=== PATIENT | female | born 1960 | race Caucasian/White ===

== ENCOUNTER 2017-10-23 18:57 | Inpatient (IN) | payer OTHER ==
[~2017-10-23] VITALS: Ht 167.6 cm; Wt 90.9 kg
[~2017-10-23 18:57] MED LIST: AMIT25TA20 PO; CELE40TA PO; CLON.5 PO; CLON1 PO; CYCL-36 PO; DICY10 PO; ESTR0.5T9 PO; FIORTAB4 PO; LYRI50CA2 PO; OXYB5TAB33 PO; PROT40TA PO; ZANA4CAP PO
[2017-10-23 19:05] VITALS: BP 157/69; PULSE 106; RESP 18; TEMP 99.9; O2SAT 96
[2017-10-23] MEDS ORDERED: PANT40TA3 PO (19:35)
[2017-10-23] MEDS ORDERED: LEVO137T2 PO (19:35)
[2017-10-23 19:48] VITALS: BP 143/68; PULSE 97; RESP 18; TEMP 99.9; O2SAT 99
[2017-10-23] MEDS ORDERED: METF1000 PO (19:48)
[2017-10-23] MEDS ORDERED: MORPHINE SULFATE 4 MG/ML INJ IV PUSH ONE (20:00)
[2017-10-23] MEDS ORDERED: ONDANSETRON HCL 4 MG/2 ML VIAL IV ONE (20:00)
[2017-10-23] MEDS ORDERED: SODIUM CHLOR 0.9% 1000 ML INJ 1,000 ML IV ONE (20:00)
--- NOTE | 2017-10-23 20:13 | PD ---
HPI Chief Complaint: Abdominal Pain Time Seen by Provider: 19:37 Travel History International Travel<30 days: No Contact w/Intl Traveler<30days: No Traveled to known affect area: No History of Present Illness HPI The patient is a 57 year old female who presents to the [facility] emergency department with a history of abdominal pain that has been present over the last few weeks. The patient reports that she was seen at the [place] imaging facility and had a CT scan of the abdomen and pelvis done on October 08 that revealed diverticulitis. She reports that this was ordered by her primary care physician, Sydney Wray that works at Dr. Lai's office. The patient reports that she has had diverticulitis in the past and been admitted to the hospital previously for this. She reports that her last colonoscopy was in February 2017. Her GI doctor is Dr. Quintanilla. The patient reports that she completed a course of ciprofloxacin and Flagyl. She has been on a clear liquid diet and advance the diet, however the pain recurred. She reports that the pain is severe and in the left lower quadrant of the abdomen. She reports that is worsened with eating anything. She reports that she has had low-grade fevers with a T-max of 99.9. She reports having nausea without vomiting. She reports having constipation. She reports that her last bowel movement was yesterday evening. She denies having any blood in her stool or black or tarry stools. On review of systems otherwise, the patient denies having any recent cough or congestion, neck pain, urinary symptoms, or neurologic symptoms. The patient reports that she does have a history of intermittent chest pain and shortness of breath. She reports that she was admitted to [facility] for evaluation of this between 3 and 4 weeks ago. He underwent a stress test that was reportedly negative at that time. She was told that she needed a follow-up for endoscopy as they thought it may be related to acid reflux, however when she called her GI doctor regarding that she was told it was too soon to have endoscopy done again. [facility] Past Medical History Narrative Medical The patient's past medical history is significant for hypertension, anxiety disorder, acid reflux, diabetes mellitus, hyperlipidemia, diverticulitis, hyperthyroid Asthma: Yes (GESTATIONAL ASTHMA, PT CAN CLARIFY IF NEEDED) Anxiety: Yes Cancer: Yes (THYROID) Cardiovascular Problems: Yes (MURMUR) Chemotherapy: Yes (I-131) Chest Pain: No COPD: No Diabetes: No Diminished Hearing: No Diverticulitis: Yes (DIVERTICULOSIS) Gastrointestinal Disorders: Yes GERD: Yes Genitourinary: Yes (STRESS INCONTINENCE, PROLAPSE BLADDER) Headaches: Yes Hepatitis: No Hiatal Hernia: Yes (GERD) Hypertension: Yes (DRUG RELATED ) Inguinal Hernia: Yes (X3) Kidney Stones: Yes Medical other: Yes (FIBROMYALGIA) Musculoskeletal: Yes Neurologic: Yes Reproductive: Yes (HYSTERECTOMY, OVARIES STILL IN PLACE) Respiratory: No Migraines: Yes Pneumonia: Yes Renal Failure: No Sleep Apnea: No Thyroid Disease: Yes Ulcer: No Tetanus Vaccination: Unknown Past Surgical History Narrative Surgical The patient's past surgical history is significant for thyroid irradiation, history of cholecystectomy, hysterectomy, umbilical hernia repair 3, tonsil and adenoidectomy. Abdominal Surgery: Yes (3 ABDOMINAL HERINIA REPAIR) Appendectomy: Yes Section: Yes (X3) Cholecystectomy: Yes Endocrine Surgery: Yes (THYROIDECTOMY ) Genitourinary Surgery: Yes (ADHESION REMOVAL ) Gynecologic Surgery: Yes (BLADDER TUCK ) Hysterectomy: Yes Oral Surgery: Yes (T & A) Other Surgery: Yes (HEMMORID) Family History Family Hypercholesterolemia: Yes (GRANDFATHER) Social History Alcohol Use: No Tobacco Use: No (QUIT 1999) Substance Use: No Allergies-Medications (Allergen,Severity, Reaction): Coded Allergies: Influenza Virus Vaccines (Unverified Allergy, Severe, VOMITING, 10/23/17) codeine (Unverified Allergy, Severe, ITCHING, RASH, NAUSEA, 10/23/17) hydrocodone (Unverified Allergy, Severe, ITCHING, NAUSEA, 10/23/17) Reported Meds & Prescriptions Reported Meds & Active Scripts Active Reported Metformin (Metformin HCl) 1,000 Mg Tab 1,000 Mg PO BIDPC Pantoprazole (Pantoprazole Sodium) 40 Mg Tab 40 Mg PO BID Levothyroxine (Levothyroxine Sodium) 137 Mcg Tab 137 Mcg PO DAILY Esgic Tab (Acetaminophen/Butalbital/Caffeine) 1 Tab Tab 2 Tab PO Q6HPRN FOR PAIN Celexa (Citalopram Hydrobromide) 40 Mg Tab 40 Mg PO DAILY Klonopin (Clonazepam) 1 Mg Tab 1 Mg PO HS Zanaflex 4 mg capsule (Tizanidine HCl) 4 Mg Cap 4 Mg PO HS Review of Systems Except as stated in HPI: all other systems reviewed are Neg General / Constitutional: Positive: Fever, Chills Eyes: No: Visual changes HENT: No: Headaches Cardiovascular: Positive: Chest Pain or Discomfort, Dyspnea on exertion Respiratory: Positive: Shortness of Breath, No: Cough Gastrointestinal: Positive: Nausea, Abdominal Pain, Constipation, Changes in Bowel Habits, Loss of Appetite, No: Vomiting, Diarrhea, Hematochezia, Indigestion Genitourinary: No: Dysuria Musculoskeletal: No: Pain Skin: No Rash Neurologic: No: Weakness, Focal Abnormalities, Change in Mentation, Slurred Speech, Sensory Disturbance Psychiatric: No: Depression Endocrine: No: Polydipsia Hematologic/Lymphatic: No: Easy Bruising Physical Exam Narrative General: The patient is a well-developed well-nourished female in no acute distress. Head and Neck exam: Head is normocephalic atraumatic. Eyes: EOMI, pupils are equal round and reactive to light. Nose: Midline septum with pink mucous membranes Mouth: Dentition unremarkable. Moist mucus membranes. Posterior oropharynx is not erythematous. No tonsillar hypertrophy. Uvula midline. Airway patent. Neck: No palpable lymphadenopathy. No nuchal rigidity. No thyromegaly. Cardiovascular: Regular rate and rhythm without murmurs, gallops, or rubs. No pulse deficit to the extremities on simultaneous auscultation and palpation of her radial artery. Lungs: Clear to auscultation bilaterally. No wheezes, rhonchi, or rales. Abdomen: Soft, with tenderness on palpation of the left upper and lower quadrant of the abdomen worse in the left lower quadrant, no other tenderness on palpation of the other quadrants of the abdomen. No rebound, or rigidity. Normal bowel sounds are audible. No tenderness on palpation of McBurney's point. Extremities: No clubbing, cyanosis, or edema. 2+ pulses in all 4 extremities. Back: No spinous process tenderness to palpation. No costovertebral angle tenderness to palpation. Neurologic Exam: Grossly nonfocal. Skin Exam: No rash noted. Intact skin that is warm and dry. Data Data Last Documented VS Vital Signs Date Time Temp Pulse Resp B/P (MAP) Pulse Ox O2 Delivery O2 Flow Rate FiO2 10/23/17 20:20 96 10/23/17 19:48 99.9 97 18 Room Air Orders Orders Electrocardiogram (10/23/17 19:47) Complete Blood Count With Diff (10/23/17:47) Comprehensive Metabolic Panel (10/23/17:47) Creatine Kinase (Cpk) (10/23/17:47) Ckmb (Isoenzyme) Profile (10/23/17:47) Troponin I (10/23/17:47) B-Type Natriuretic Peptide (10/23/17:47) Prothrombin Time / Inr (Pt) (10/23/17:47) Act Partial Throm Time (Ptt) (10/23/17:47) Blood Culture (10/23/17:47) C-Reactive Protein (Crp) (10/23/17:47) Lipase (10/23/17:47) Urinalysis - C+S If Indicated (10/23/17:47) Magnesium (Mg) (10/23/17:47) Chest, Single Ap (10/23/17:47) Ct Abd/Pel W Iv Contrast(Rout) (10/23/17:47) Iv Access Insert/Monitor (10/23/17:47) Ecg Monitoring (10/23/17:47) Oximetry (10/23/17:47) Lactic Acid Sepsis Protocol (10/23/17:47) Sodium Chlor 0.9% 1000 Ml Inj (Ns 1000 M (10/23/17 20:00) Ondansetron Inj (Zofran Inj) (10/23/17 20:00) Morphine Inj (Morphine Inj) (10/23/17 20:00) Piperacil-Tazo 3.375 Gm Premix (Zosyn 3. (10/23/17 21:15) Sodium Chlorid 0.9% 500 Ml Inj (Ns 500 M (10/23/17 21:15) CKMB (10/23/17 20:20) CKMB% (10/23/17 20:20) Iohexol 350 Inj (Omnipaque 350 Inj) (10/23/17 22:04) Labs Laboratory Tests Test 10/23/17 20:20 10/23/17 20:40 White Blood Count 9.8 TH/MM3 Red Blood Count 4.15 MIL/MM3 Hemoglobin 12.2 GM/DL Hematocrit 36.0 % Mean Corpuscular Volume 86.7 FL Mean Corpuscular Hemoglobin 29.4 PG Mean Corpuscular Hemoglobin Concent 33.9 % Red Cell Distribution Width 13.8 % Platelet Count 301 TH/MM3 Mean Platelet Volume 8.9 FL Neutrophils (%) (Auto) 70.5 % Lymphocytes (%) (Auto) 18.4 % Monocytes (%) (Auto) 9.7 % Eosinophils (%) (Auto) 1.0 % Basophils (%) (Auto) 0.4 % Neutrophils # (Auto) 6.9 TH/MM3 Lymphocytes # (Auto) 1.8 TH/MM3 Monocytes # (Auto) 1.0 TH/MM3 Eosinophils # (Auto) 0.1 TH/MM3 Basophils # (Auto) 0.0 TH/MM3 CBC Comment DIFF FINAL Differential Comment Prothrombin Time 10.0 SEC Prothromb Time International Ratio 1.0 RATIO Activated Partial Thromboplast Time 27.0 SEC Blood Urea Nitrogen 13 MG/DL Creatinine 0.76 MG/DL Random Glucose 95 MG/DL Total Protein 7.2 GM/DL Albumin 3.4 GM/DL Calcium Level 8.9 MG/DL Magnesium Level 1.9 MG/DL Alkaline Phosphatase 71 U/L Aspartate Amino Transf (AST/SGOT) 27 U/L Alanine Aminotransferase (ALT/SGPT) 24 U/L Total Bilirubin 0.6 MG/DL Sodium Level 140 MEQ/L Potassium Level 4.4 MEQ/L Chloride Level 105 MEQ/L Carbon Dioxide Level 27.9 MEQ/L Anion Gap 7 MEQ/L Estimat Glomerular Filtration Rate 78 ML/MIN Lactic Acid Level 0.9 mmol/L Total Creatine Kinase 159 U/L Creatine Kinase MB LESS THAN 0.5 NG/ML Troponin I LESS THAN 0.02 NG/ML C-Reactive Protein 2.90 MG/DL B-Type Natriuretic Peptide 22 PG/ML Lipase 125 U/L Urine Color YELLOW Urine Turbidity CLEAR Urine pH 7.5 Urine Specific [place] 1.019 Urine Protein NEG mg/dL Urine Glucose (UA) NEG mg/dL Urine Ketones NEG mg/dL Urine Occult Blood NEG Urine Nitrite NEG Urine Bilirubin NEG Urine Urobilinogen LESS THAN 2.0 MG/DL Urine Leukocyte Esterase NEG Urine WBC 1 /hpf Urine Squamous Epithelial Cells 1 /hpf Microscopic Urinalysis Comment CULT NOT INDICATED MDM Medical Decision Making Medical Screen Exam Complete: Yes Emergency Medical Condition: Yes Medical Record Reviewed: Yes Differential Diagnosis Diverticular abscess, versus failed treatment of diverticulitis as an outpatient , versus bowel perforation, versus constipation Narrative Course During the course of the patient's emergency department visit, the patient's history, examination, and differential diagnosis were reviewed with the patient. The patient was placed on a satellite project site monitor with oximetry and frequent blood pressure monitoring. The patient had [-] IV access obtained and blood work sent for analysis. The patient had an EKG done on arrival. The patient's EKG reveals a heart rate of 89, QRS duration is 84 ms, QTC 400 ms, no acute ST segment elevation or depression. The patient was initially provided normal saline 1 L IV fluid bolus, morphine for pain, Zofran for nausea. The patient was started on Zosyn 3.375 g IV. The patient's laboratory studies were reviewed and remarkable for 10/23/17 20:20 Total Protein 7.2, Albumin 3.4, Calcium Level 8.9, Magnesium Level 1.9, Alkaline Phosphatase 71, Aspartate Amino Transf (AST/SGOT) 27, Alanine Aminotransferase (ALT/SGPT) 24, Total Bilirubin 0.6, cardiac enzymes within normal limits, CRP is 2.90, BNP 22, lipase 125, lactic acid 0.9. PT PTT within normal limits. Urinalysis within normal limit. Radiology studies were reviewed and remarkable for Last Impressions Chest X-Ray 10/23/171946 Signed Impressions: Service Date/Time: Monday, October 23, 2017 20:01 - CONCLUSION: No acute disease. Bar Rudolph MD Abdomen/Pelvis CT 10/23/171946 Signed Impressions: Service Date/Time: Monday, October 23, 2017 21:52 - CONCLUSION: 1. 6 cm long area of mural thickening in the distal left colon associated with numerous diverticula and a small amount of free fluid. Primary differential diagnosis is diverticulitis. Focal colitis could have a similar appearance. Bar Rudolph MD Given the patient's 10 day course of antibiotic with continued symptoms the patient has failed outpatient management of her diverticulitis, versus colitis, therefore she will be admitted to the hospital for continued evaluation and treatment. The patient's results were discussed with the patient, including the plan of care. I explained that further testing and/ or monitoring is indicated based on the patient's history, examination, and/ or laboratory findings. Therefore, I recommended admission for additional evaluation. The patient expressed understanding and was agreeable with this plan. The patient was admitted to the hospital in stable condition and sent to a bed under the care of the [facility] service. Physician Communication Physician Communication The patient's case including history, pertinent physical examination findings, and laboratory studies were discussed with Dr. Carpenter. It was agreed that the patient would be admitted to the [facility] service. Diagnosis Primary Impression: Diverticulitis Additional Impression: Failure of outpatient treatment Admitting Information Admitting Physician Requests: it Deysi Oro MD October 23, 2017 20:13
[2017-10-23 20:20] VITALS: O2SAT 96
--- NOTE | 2017-10-23 20:30 | RADRPT ---
EXAM DATE/TIME: 10/23/2017 20:01 [facility] COMPARISON: No previous studies available for comparison. INDICATIONS : Chest pain. 8/10 abdomen pain. MEDICAL HISTORY : None. SURGICAL HISTORY : None. ENCOUNTER: Initial ACUITY: 2 weeks PAIN SCORE: 3/10 LOCATION: Bilateral chest FINDINGS: A single view of the chest demonstrates the lungs to be symmetrically aerated without evidence of mas s, infiltrate or effusion. The cardiomediastinal contours are unremarkable. Osseous structures are intact. CONCLUSION: No acute disease. Bar Rudolph MD on October 23, 2017 at 20:28 Board Certified Radiologist. This report was verified electronically.
[2017-10-23 21:03] LABS: AUTOMATED NEUTROPHIL # 6.9 TH/MM3 (1.8-7.7); BASOPHIL % 0.4 % (0.0-2.0); EOSINOPHIL # 0.1 TH/MM3 (0-0.4); HEMOGLOBIN 12.2 GM/DL (11.6-15.3); LYMPH % 18.4 % (9.0-44.0); LYMPHOCYTE # 1.8 TH/MM3 (1.0-4.8); MEAN CELL VOLUME 86.7 FL (80.0-100.0); MEAN CORPUSCULAR HEMOGLOBIN 29.4 PG (27.0-34.0); MEAN CORPUSCULAR HGB CONC 33.9 % (32.0-36.0); MEAN PLATELET VOLUME 8.9 FL (7.0-11.0); MONO % 9.7 % (0.0-8.0); NEUT % 70.5 % (16.0-70.0); PLATELET COUNT 301 TH/MM3 (150-450); RED BLOOD COUNT 4.15 MIL/MM3 (4.00-5.30); RED CELL DISTRIBUTION WIDTH 13.8 % (11.6-17.2); WHITE BLOOD COUNT 9.8 TH/MM3 (4.0-11.0)
[2017-10-23] MEDS ORDERED: PIPERACIL-TAZO 3.375 GM PREMIX 50 ML IV ONE (21:15)
[2017-10-23] MEDS ORDERED: SODIUM CHLORID 0.9% 500 ML INJ 500 ML IV ONE (21:15)
[2017-10-23 21:21] LABS: BILIRUBIN, URINE NEG (NEG); BLOOD, URINE NEG (NEG); GLUCOSE,URINE NEG (NEG); KETONE, URINE NEG (NEG); NITRITE,URINE NEG (NEG); PH, URINE 7.5 (5.0-8.5); SQUAMOUS EPITHELIAL CELL URINE 1 /hpf (0-5); URINE COLOR YELLOW (YELLW/STRAW); URINE LEUKOCYTE ESTERASE NEG (NEG)
[2017-10-23 21:25] LABS: ALT (GPT) 24 U/L (10-53)
[2017-10-23 21:44] LABS: ALBUMIN 3.4 GM/DL (3.4-5.0); ALKALINE PHOSPHATASE 71 U/L (45-117); AST (GOT) 27 U/L (15-37); BICARBONATE 27.9 MEQ/L (21.0-32.0); BLOOD UREA NITROGEN 13 MG/DL (7-18); CALCIUM 8.9 MG/DL (8.5-10.1); CHLORIDE 105 MEQ/L (98-107); CREATININE 0.76 MG/DL (0.50-1.00); GLOMERULAR FILTRATION RATE 78 ML/MIN (>89); GLUCOSE,RANDOM 95 MG/DL (74-106); MAGNESIUM 1.9 MG/DL (1.5-2.5); SODIUM (NA) 140 MEQ/L (136-145); TOTAL BILIRUBIN ADULT 0.6 MG/DL (0.2-1.0); TOTAL PROTEIN 7.2 GM/DL (6.4-8.2); TROPONIN I LESS THAN 0.02 NG/ML (0.02-0.05)
[2017-10-23] MEDS ORDERED: IOHEXOL 350 MG/ML 10 ML VIAL (for RAD DIAG) IVCONTRAST ONE (22:04)
--- NOTE | 2017-10-23 22:28 | RADRPT ---
EXAM DATE/TIME: 10/23/2017 21:52 [facility] COMPARISON: No previous studies available for comparison. INDICATIONS : Left sided abdominal pain. IV CONTRAST: 80 cc Omnipaque 350 (iohexol) IV ORAL CONTRAST: No oral contrast ingested. RADIATION DOSE: 9.34 CTDIvol (mGy) MEDICAL HISTORY : Diverticulosis. Cardiovascular disease Hernia, hiatal.Thyroid cancer. Inguinal hernia. SURGICAL HISTORY : Hysterectomy. section.Appendectomy.Cholecystectomy. ENCOUNTER: Initial ACUITY: 1 week PAIN SCALE: 8/10 LOCATION: Left abdomen. TECHNIQUE: Volumetric scanning of the abdomen and pelvis was performed. Using automated exposure control and ad justment of the mA and/or kV according to patient size, radiation dose was kept as low as reasonably achievable to obtain optimal diagnostic quality images. DICOM format image data is available electro nically for review and comparison. FINDINGS: There is colonic diverticulosis with focal mural thickening of the distal left colon extending over a length of about 6 cm and is characteristic of an acute diverticulitis. No discrete abscess. Small am ount of free fluid in the pelvis. Lung bases are clear. No acute findings in the liver, spleen, adrenals, kidneys or pancreas. Previous cholecystectomy. CONCLUSION: 1. 6 cm long area of mural thickening in the distal left colon associated with numerous diverticula a nd a small amount of free fluid. Primary differential diagnosis is diverticulitis. Focal colitis coul d have a similar appearance. Bar Rudolph MD on October 23, 2017 at 22:24 Board Certified Radiologist. This report was verified electronically.
[2017-10-23 23:04] VITALS: BP 130/58; PULSE 94; RESP 16; TEMP 99.3; O2SAT 96
[2017-10-24] MEDS ORDERED: LACTULOSE SYRUP 20 GM/30 ML CUP PO PRN (00:45)
[2017-10-24] MEDS ORDERED: SENNOSIDES 8.6 MG TAB PO PRN (00:45)
[2017-10-24] MEDS ORDERED: MAGNESIUM HYDROXIDE SUSP 30 ML CUP PO PRN (00:45)
[2017-10-24] MEDS ORDERED: NALOXONE HCL 0.4 MG/ML AMP IV PUSH PRN (00:45)
[2017-10-24] MEDS ORDERED: DEXTROSE 50% IN WATER 50 ML VIAL(D50) IV PUSH PRN (00:45)
[2017-10-24] MEDS ORDERED: SODIUM CHLORIDE 0.9% FLUSH 10 ML FLUSH IV FLUSH PRN (00:45)
[2017-10-24] MEDS ORDERED: BISACODYL 10 MG SUPP RECTAL PRN (00:45)
[2017-10-24] MEDS ORDERED: GLUCAGON 1 MG/ML VIAL OTHER PRN (00:45)
[2017-10-24] MEDS: SODIUM CHLOR 0.9% 1000 ML INJ 1,000 ML IV SCH ×3 (01:05→20:39)
[2017-10-24] MEDS: ONDANSETRON HCL 4 MG/2 ML VIAL IVP PRN ×3 (01:06→15:12)
[2017-10-24] MEDS: MORPHINE SULFATE 4 MG/ML INJ IV PUSH PRN ×2 (01:18→11:08)
--- NOTE | 2017-10-24 02:05 | HHI.HP ---
HPI Service [facility] Primary Care Physician Mario Lai, Admission Diagnosis Diverticulitis failed outpt management Diagnoses: Travel History International Travel<30 Days: No Contact w/Intl Traveler <30 Da: No Traveled to Known Affected Are: No History of Present Illness 57-year-old female with a past medical history significant for recurrent diverticulitis and diabetes mellitus presents the emergency department for evaluation of abdominal pain. The patient reports that her abdominal pain starts in the left lower quadrant but is now radiating across her abdomen to the right side. She states that she has had significant abdominal pain since her initial diagnosis of diverticulitis on 09/08/17. The patient was given 10 days of Cipro and Flagyl p.o. and completed the course of antibiotics. She reports that her abdominal pain never really improved and then worsened today. She endorses a several day history of subjective fever/chills. Denies chest pain or shortness of breath. No nausea/vomiting/diarrhea. No weakness or fatigue. No lateralizing signs/symptoms. Review of Systems Except as stated in HPI: all other systems reviewed are Neg Past Family Social History Past Medical History Diabetes mellitus History of diverticulitis Past Surgical History Hysterectomy 3 Lysis of adhesions Umbilical hernia repair 2 Reported Medications Reported Meds & Active Scripts Active Reported Metformin (Metformin HCl) 1,000 Mg Tab 1,000 Mg PO BIDPC Pantoprazole (Pantoprazole Sodium) 40 Mg Tab 40 Mg PO BID Levothyroxine (Levothyroxine Sodium) 137 Mcg Tab 137 Mcg PO DAILY Esgic Tab (Acetaminophen/Butalbital/Caffeine) 1 Tab Tab 2 Tab PO Q6HPRN FOR PAIN Celexa (Citalopram Hydrobromide) 40 Mg Tab 40 Mg PO DAILY Klonopin (Clonazepam) 1 Mg Tab 1 Mg PO HS Zanaflex 4 mg capsule (Tizanidine HCl) 4 Mg Cap 4 Mg PO HS Allergies: Coded Allergies: Influenza Virus Vaccines (Unverified Allergy, Severe, VOMITING, 10/23/17) codeine (Unverified Allergy, Severe, ITCHING, RASH, NAUSEA, 10/23/17) hydrocodone (Unverified Allergy, Severe, ITCHING, NAUSEA, 10/23/17) Family History Mother with diabetes mellitus, father with CHF Social History Rare alcohol. Negative for tobacco and illicit drugs. Physical Exam Vital Signs Vital Signs Date Time Temp Pulse Resp B/P (MAP) Pulse Ox O2 Delivery O2 Flow Rate FiO2 10/23/17 23:04 99.3 94 16 130/58 (82) 96 Room Air 10/23/17 20:20 96 10/23/17 19:48 99.9 97 18 143/68 (93) 99 Room Air 10/23/17 19:05 99.9 106 18 157/69 (98) 96 Physical Exam GENERAL: female lying in bed SKIN: No rashes, ecchymoses or lesions. Cool and dry. HEAD: Atraumatic. Normocephalic. No temporal or scalp tenderness. EYES: Pupils equal round and reactive. Extraocular motions intact. No scleral icterus. No injection or drainage. ENT: Nose without bleeding, purulent drainage or septal hematoma. Throat without erythema, tonsillar hypertrophy or exudate. Uvula midline. Airway patent. NECK: Trachea midline. No JVD or lymphadenopathy. Supple, nontender, no meningeal signs. CARDIOVASCULAR: Regular rate and rhythm without murmurs, gallops, or rubs. RESPIRATORY: Clear to auscultation. Breath sounds equal bilaterally. No wheezes , rales, or rhonchi. GASTROINTESTINAL: Abdomen soft, diffusely tender to palpation, left greater than right, nondistended. No hepato-splenomegaly, or palpable masses. No guarding. MUSCULOSKELETAL: Extremities without clubbing, cyanosis, or edema. No joint tenderness, effusion, or edema noted. No calf tenderness. NEUROLOGICAL: Awake and alert. Cranial nerves II through XII intact. Motor and sensory grossly within normal limits. Normal speech. Laboratory Laboratory Tests Test 10/23/17 20:20 10/23/17 20:40 White Blood Count 9.8 Red Blood Count 4.15 Hemoglobin 12.2 Hematocrit 36.0 Mean Corpuscular Volume 86.7 Mean Corpuscular Hemoglobin 29.4 Mean Corpuscular Hemoglobin Concent 33.9 Red Cell Distribution Width 13.8 Platelet Count 301 Mean Platelet Volume 8.9 Neutrophils (%) (Auto) 70.5 Lymphocytes (%) (Auto) 18.4 Monocytes (%) (Auto) 9.7 Eosinophils (%) (Auto) 1.0 Basophils (%) (Auto) 0.4 Neutrophils # (Auto) 6.9 Lymphocytes # (Auto) 1.8 Monocytes # (Auto) 1.0 Eosinophils # (Auto) 0.1 Basophils # (Auto) 0.0 CBC Comment DIFF FINAL Differential Comment Prothrombin Time 10.0 Prothromb Time International Ratio 1.0 Activated Partial Thromboplast Time 27.0 Blood Urea Nitrogen 13 Creatinine 0.76 Random Glucose 95 Total Protein 7.2 Albumin 3.4 Calcium Level 8.9 Magnesium Level 1.9 Alkaline Phosphatase 71 Aspartate Amino Transf (AST/SGOT) 27 Alanine Aminotransferase (ALT/SGPT) 24 Total Bilirubin 0.6 Sodium Level 140 Potassium Level 4.4 Chloride Level 105 Carbon Dioxide Level 27.9 Anion Gap 7 Estimat Glomerular Filtration Rate 78 Lactic Acid Level 0.9 Total Creatine Kinase 159 Creatine Kinase MB LESS THAN 0.5 Troponin I LESS THAN 0.02 C-Reactive Protein 2.90 B-Type Natriuretic Peptide 22 Lipase 125 Urine Color YELLOW Urine Turbidity CLEAR Urine pH 7.5 Urine Specific [place] 1.019 Urine Protein NEG Urine Glucose (UA) NEG Urine Ketones NEG Urine Occult Blood NEG Urine Nitrite NEG Urine Bilirubin NEG Urine Urobilinogen LESS THAN 2.0 Urine Leukocyte Esterase NEG Urine WBC 1 Urine Squamous Epithelial Cells 1 Microscopic Urinalysis Comment CULT NOT INDICATED Date/Time Source Procedure Growth Status 10/23/17 20:35 Blood Peripheral Aerobic Blood Culture Pending Received 10/23/17 20:35 Blood Peripheral Anaerobic Blood Culture Pending Received Result Diagram: 10/23/17201910/23/172019 Caprini VTE Risk Assessment Caprini VTE Risk Assessment: No/Low Risk (score <= 1) Caprini Risk Assessment Model Point Value = 1 Point Value = 2 Point Value = 3 Point Value = 5 Age 41-60 Minor surgery BMI > 25 kg/m2 Swollen legs Varicose veins or History of unexplained or recurrent spontaneous Oral contraceptives or hormone replacement Sepsis (< 1 month) Serious lung disease, including pneumonia (< 1 month) Abnormal pulmonary function Acute myocardial infarction Congestive heart failure (< 1 month) History of inflammatory bowel disease Medical patient at bed rest Age 61-74 Arthroscopic surgery Major open surgery (> 45 min) Laparoscopic surgery (> 45 min) Malignancy Confined to bed (> 72 hours) Immobilizing plaster cast Central venous access Age >= 75 History of VTE Family history of VTE Factor V Leiden Prothrombin [id number] Lupus anticoagulant Anticardiolipin antibodies Elevated serum homocysteine Heparin-induced thrombocytopenia Other congenital or acquired thrombophilia Stroke (< 1 month) Elective arthroplasty Hip, pelvis, or leg fracture Acute spinal cord injury (< 1 month) Prophylaxis Regimen Total Risk Factor Score Risk Level Prophylaxis Regimen 0-1 Low Early ambulation 2 Moderate Order ONE of the following: *Sequential Compression Device (SCD) *Heparin 5000 units SQ BID 3-4 Higher Order ONE of the following medications: *Heparin 5000 units SQ TID *Enoxaparin/Lovenox 40 mg SQ daily (WT < 150 kg, CrCl > 30 mL/min) *Enoxaparin/Lovenox 30 mg SQ daily (WT < 150 kg, CrCl > 10-29 mL/min) *Enoxaparin/Lovenox 30 mg SQ BID (WT < 150 kg, CrCl > 30 mL/min) AND/OR *Sequential Compression Device (SCD) 5 or more Highest Order ONE of the following medications: *Heparin 5000 units SQ TID (Preferred with Epidurals) *Enoxaparin/Lovenox 40 mg SQ daily (WT < 150 kg, CrCl > 30 mL/min) *Enoxaparin/Lovenox 30 mg SQ daily (WT < 150 kg, CrCl > 10-29 mL/min) *Enoxaparin/Lovenox 30 mg SQ BID (WT < 150 kg, CrCl > 30 mL/min) AND *Sequential Compression Device (SCD) Assessment and Plan Assessment and Plan Assessment/plan: 1. Diverticulitis, failed outpatient treatment CT of the abdomen/pelvis shows a 6 cm area of mural thickening in the distal left colon associated with numerous diverticula and free fluid, likely diverticulitis Cannot exclude focal colitis Status post Cipro/Flagyl 10 days IV Zosyn Patient's bottoming room inspector is Dr. Bernardo, consulted, appreciate assistance 2. Diabetes mellitus Holding the metformin SSI Monitor blood glucose 3. Hypothyroidism Continue home levothyroxine FEN NPO NS at 100 cc/hr Electrolytes: monitor and replete prn Physician Certification 2 Midnight Certification Type: Admission for Inpatient Services Order for Inpatient Services The services are ordered in accordance with Medicare regulations or non- Medicare payer requirements, as applicable. In the case of services not specified as inpatient-only, they are appropriately provided as inpatient services in accordance with the 2-midnight benchmark. Estimated LOS (days): 2 2 days is the estimated time the patient will need to remain in the hospital, assuming treatment plan goals are met and no additional complications. Post-Hospital Plan: Not yet determined Keeley Carpenter MD October 24, 2017 02:05
[2017-10-24] MEDS: PIPERACIL-TAZO 3.375 GM PREMIX 50 ML IV SCH ×4 (04:42→21:05)
[2017-10-24 05:30] VITALS: BP 117/63; PULSE 92; RESP 18; TEMP 98.3; O2SAT 94
[2017-10-24] MEDS: LEVOTHYROXINE SODIUM 112 MCG TAB PO SCH (06:11)
[2017-10-24] MEDS: LEVOTHYROXINE SODIUM 25 MCG TAB PO SCH (06:12)
[2017-10-24 07:50] VITALS: BP 115/66; PULSE 80; RESP 16; TEMP 97.8; O2SAT 95
[2017-10-24] MEDS ORDERED: PNEUMOCOCCAL POLYVALENT INJ 25 MCG/0.5 ML SYR IM ONE (09:00)
[2017-10-24] MEDS: INSULIN ASPART SUPPLEMENTAL SCALE SQ SCH ×4 (09:20→21:00)
[2017-10-24] MEDS: SODIUM CHLORIDE 0.9% FLUSH 10 ML FLUSH IV FLUSH SCH ×2 (09:23→21:00)
[2017-10-24] MEDS: DOCUSATE SODIUM 50 MG/SENNA 8.6 MG TAB PO SCH ×2 (09:25→21:00)
--- NOTE | 2017-10-24 09:55 | PD.CONS ---
HPI History of Present Illness This is a 57 year old female with DMII who presented to ER with abd pain. Onset 2 months ago, pain in lower quadrant. Her PCP gave her cipro and flagyl and she had clear liquid diet for 1 week. She did note some improvement but the improvement ceased when she tried to eat solid food. She is also having epigastric pain, nausea. She did vomit last night. She was having soft stools a week ago and then a few days ago she had constipation. No blood in stool or emesis, no black tarry stool. She went to [facility] 1 month ago thinking she was having a heart attack and cardiac cause was ruled out. She had an appt with Gaye Tyler who recommended she have an EGD. Her last colonoscopy and EGD was 02/[address] Quintanilla with finding esophagitis, diverticulosis. She is c/o reflux and gas and "indigestion" that is chronic but this is worse in the last month. She has hx diverticulitis, had 2 similar episodes requiring hospitalization 10 years ago. (Delicia Palacio) PFSH Past Medical History Diabetes mellitus History of diverticulitis Past Surgical History Hysterectomy 3 Lysis of adhesions Umbilical hernia repair 2 (Delicia Palacio) Coded Allergies: Influenza Virus Vaccines (Unverified Allergy, Severe, VOMITING, 10/23/17) codeine (Unverified Allergy, Severe, ITCHING, RASH, NAUSEA, 10/23/17) hydrocodone (Unverified Allergy, Severe, ITCHING, NAUSEA, 10/23/17) Family History Mother with diabetes mellitus, father with CHF Social History Rare alcohol. Negative for tobacco and illicit drugs. (Delicia Palacio) Review of Systems Constitutional: COMPLAINS OF: Fever Endocrine: DENIES: Polydipsia Eyes: DENIES: Blurred vision Ears, nose, mouth, throat: DENIES: Hearing loss Respiratory: DENIES: Cough Cardiovascular: DENIES: Chest pain Gastrointestinal: COMPLAINS OF: Abdominal pain, Constipation, Nausea, Vomiting , DENIES: Black stools, Bloody stools Genitourinary: DENIES: Hematuria Musculoskeletal: DENIES: Joint Swelling Integumentary: DENIES: Rash Hematologic/lymphatic: DENIES: Bruising Immunologic/allergic: DENIES: Eczema Neurologic: DENIES: Abnormal gait Psychiatric: DENIES: Confusion (Delicia Palacio) GI Exam Vitals I&O Vital Signs Date Time Temp Pulse Resp B/P (MAP) Pulse Ox O2 Delivery O2 Flow Rate FiO2 10/24/17 07:50 97.8 80 16 115/66 (82) 95 10/24/17 05:30 98.3 92 18 117/63 (81) 94 10/23/17 23:04 99.3 94 16 130/58 (82) 96 Room Air 10/23/17 20:20 96 10/23/17 19:48 99.9 97 18 143/68 (93) 99 Room Air 10/23/17 19:05 99.9 106 18 157/69 (98) 96 I/O 10/23/17 10/23/17 10/23/17 10/24/17 10/24/17 10/24/17 07:00 15:00 23:00 07:00 15:00 23:00 Intake Total 1550 ml Balance 1550 ml Intake IV Total 1550 ml Imaging Last Impressions Chest X-Ray 10/23/171946 Signed Impressions: Service Date/Time: Monday, October 23, 2017 20:01 - CONCLUSION: No acute disease. Bar Rudolph MD Abdomen/Pelvis CT 10/23/171946 Signed Impressions: Service Date/Time: Monday, October 23, 2017 21:52 - CONCLUSION: 1. 6 cm long area of mural thickening in the distal left colon associated with numerous diverticula and a small amount of free fluid. Primary differential diagnosis is diverticulitis. Focal colitis could have a similar appearance. Bar Rudolph MD Laboratory Test 10/23/17 20:20 10/23/17 20:40 White Blood Count 9.8 TH/MM3 Red Blood Count 4.15 MIL/MM3 Hemoglobin 12.2 GM/DL Hematocrit 36.0 % Mean Corpuscular Volume 86.7 FL Mean Corpuscular Hemoglobin 29.4 PG Mean Corpuscular Hemoglobin Concent 33.9 % Red Cell Distribution Width 13.8 % Platelet Count 301 TH/MM3 Mean Platelet Volume 8.9 FL Neutrophils (%) (Auto) 70.5 % Lymphocytes (%) (Auto) 18.4 % Monocytes (%) (Auto) 9.7 % Eosinophils (%) (Auto) 1.0 % Basophils (%) (Auto) 0.4 % Neutrophils # (Auto) 6.9 TH/MM3 Lymphocytes # (Auto) 1.8 TH/MM3 Monocytes # (Auto) 1.0 TH/MM3 Eosinophils # (Auto) 0.1 TH/MM3 Basophils # (Auto) 0.0 TH/MM3 CBC Comment DIFF FINAL Differential Comment Prothrombin Time 10.0 SEC Prothromb Time International Ratio 1.0 RATIO Activated Partial Thromboplast Time 27.0 SEC Blood Urea Nitrogen 13 MG/DL Creatinine 0.76 MG/DL Random Glucose 95 MG/DL Total Protein 7.2 GM/DL Albumin 3.4 GM/DL Calcium Level 8.9 MG/DL Magnesium Level 1.9 MG/DL Alkaline Phosphatase 71 U/L Aspartate Amino Transf (AST/SGOT) 27 U/L Alanine Aminotransferase (ALT/SGPT) 24 U/L Total Bilirubin 0.6 MG/DL Sodium Level 140 MEQ/L Potassium Level 4.4 MEQ/L Chloride Level 105 MEQ/L Carbon Dioxide Level 27.9 MEQ/L Anion Gap 7 MEQ/L Estimat Glomerular Filtration Rate 78 ML/MIN Lactic Acid Level 0.9 mmol/L Total Creatine Kinase 159 U/L Creatine Kinase MB LESS THAN 0.5 NG/ML Troponin I LESS THAN 0.02 NG/ML C-Reactive Protein 2.90 MG/DL B-Type Natriuretic Peptide 22 PG/ML Lipase 125 U/L Urine Color YELLOW Urine Turbidity CLEAR Urine pH 7.5 Urine Specific [place] 1.019 Urine Protein NEG mg/dL Urine Glucose (UA) NEG mg/dL Urine Ketones NEG mg/dL Urine Occult Blood NEG Urine Nitrite NEG Urine Bilirubin NEG Urine Urobilinogen LESS THAN 2.0 MG/DL Urine Leukocyte Esterase NEG Urine WBC 1 /hpf Urine Squamous Epithelial Cells 1 /hpf Microscopic Urinalysis Comment CULT NOT INDICATED Date/Time Source Procedure Growth Status 10/23/17 20:35 Blood Peripheral Aerobic Blood Culture Pending Received 10/23/17 20:35 Blood Peripheral Anaerobic Blood Culture Pending Received Physical Examination HEENT: PERRL; normocephalic; atraumatic; no jaundice. CHEST: CTA CARDIAC: RRR ABDOMEN: Soft, diffusely TTP, nontender; no hepatosplenomegaly; bowel sounds are present in all four quadrants. EXTREMITIES: No clubbing, cyanosis, or edema. SKIN: Normal; no rash; no jaundice. 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 (Delicia Palacio) Assessment and Plan Plan ASSESSMENT - epigastric pain, n/v, dyspepsia - last EGD 02/2017 with finding esohpagitis. could be gastritis vs esophagitis vs donovan vs hpylori. - lower abd pain, change in bowel habits - for last month, failed outpt tx with cipro flagyl. suspect diverticulitis given pts history pt now on IV zosyn. last colonoscopy 02/[address] suggestive diverticulitis vs colitis labs unremarkable PLAN - EGD today - obtain consent - NPO - continue zosyn - colonoscopy 4-6 weeks - monitor labs - further recs to follow pt seen by myself and Dr Bravo and this note is on his behalf (Delicia Palacio) Plan Patient was seen and examined, agree with above note, most likely diverticulitis , we will do upper endoscopy to rule out peptic ulcer disease, could be gastroenteritis or gastropathy or gastroparesis patient is known diabetic, further plan depends on the finding of the endoscopy (Adrian Bravo MD) Delicia Palacio October 24, 2017 09:55 Adrian Bravo MD October 24, 2017 14:15
--- NOTE | 2017-10-24 10:29 | EKG ---
Date Performed: 10/23/2017 Time Performed: 20:14:46 PTAGE: 57 years EKG: Normal Sinus rhythm PREVIOUS TRACING 03/31/2010 Since the previous tracing, no significant change noted DOCTOR: David Oro Interpretating Date/Time 10/24/2017 10:27:23
[2017-10-24 11:41] VITALS: BP 119/59; PULSE 79; RESP 18; TEMP 97.9; O2SAT 92
[2017-10-24] MEDS ORDERED: CHLORHEXIDINE GLUCONATE 2 % 1 PACK (2 CLOTHS) TOPICAL PRN (11:45)
[2017-10-24] MEDS ORDERED: METOPROLOL TARTRATE 25 MG TAB PO PRN (11:45)
[2017-10-24] MEDS ORDERED: POVIDONE IODINE 5% (ANTISEPSIS KIT) 4 APPLICATIONS EACH NARE PRN (11:45)
[2017-10-24] MEDS ORDERED: LACTATED RINGER'S 1000 ML IV PRN (11:45)
[2017-10-24] MEDS ORDERED: SODIUM CHLORID 0.9% 500 ML IV PRN (11:45)
[2017-10-24] MEDS ORDERED: LIDOCAINE HCL 1% PF 5 ML SYRINGE OTHER ONE (12:00)
[2017-10-24] MEDS ORDERED: PROPOFOL 200 MG/20 ML AMP IV ONE (12:00)
--- NOTE | 2017-10-24 14:18 | PD.PROCEDR ---
GI Procedure PROCEDURE PERFORMED Upper endoscopy with biopsy INDICATION FOR PROCEDURE Nausea vomiting, abdominal pain PROCEDURE: The procedure, risks and benefits were discussed with Ms. Horn and informed consent was obtained. Anesthesia sedated her with Diprivan. She was placed in the left lateral decubitus position. EGD: The Pentax videoscope was introduced through the oropharynx and advanced to the second portion of the duodenum under direct visualization. Retroflexion was performed in the stomach. Biopsy from the antrum ESTIMATED BLOOD LOSS: None SPECIMENS REMOVED: Antrum COMPLICATIONS: None IMPRESSION: Significant gastritis could be related to the retching and vomiting Normal EGD otherwise Possible gastropathy or gastroparesis PLAN: Clear liquid diet advance as tolerated Continue treatment for diverticulitis Follow-up biopsy Consider gastric emptying study if symptoms persist Adrian Bravo MD October 24, 2017 14:18
--- NOTE | 2017-10-24 16:08 | HHI.PR ---
Subjective Remarks Follow-up diverticulitis/failed outpatient therapy October 24, 2017-patient seen and examined, she is status post EGD. Continue to have emesis. Objective Vitals Vital Signs Date Time Temp Pulse Resp B/P (MAP) Pulse Ox O2 Delivery O2 Flow Rate FiO2 10/24/17 11:41 97.9 79 18 119/59 (79) 92 10/24/17 07:50 97.8 80 16 115/66 (82) 95 10/24/17 05:30 98.3 92 18 117/63 (81) 94 10/23/17 23:04 99.3 94 16 130/58 (82) 96 Room Air 10/23/17 20:20 96 10/23/17 19:48 99.9 97 18 143/68 (93) 99 Room Air 10/23/17 19:05 99.9 106 18 157/69 (98) 96 I/O 10/23/17 10/23/17 10/23/17 10/24/17 10/24/17 10/24/17 07:00 15:00 23:00 07:00 15:00 23:00 Intake Total 1550 ml 50 ml Balance 1550 ml 50 ml Intake IV Total 1550 ml Other 50 ml Result Diagram: 10/23/17201910/23/172019 Imaging Last Impressions Chest X-Ray 10/23/171946 Signed Impressions: Service Date/Time: Monday, October 23, 2017 20:01 - CONCLUSION: No acute disease. Bar Rudolph MD Abdomen/Pelvis CT 10/23/171946 Signed Impressions: Service Date/Time: Monday, October 23, 2017 21:52 - CONCLUSION: 1. 6 cm long area of mural thickening in the distal left colon associated with numerous diverticula and a small amount of free fluid. Primary differential diagnosis is diverticulitis. Focal colitis could have a similar appearance. Bar Rudolph MD Objective Remarks GENERAL: NAD SKIN: Warm and dry. HEAD: Normocephalic. EYES: No scleral icterus. No injection or drainage. NECK: Supple, trachea midline. No JVD or lymphadenopathy. CARDIOVASCULAR: Regular rate and rhythm without murmurs, gallops, or rubs. RESPIRATORY: Breath sounds equal bilaterally. No accessory muscle use. GASTROINTESTINAL: Abdomen soft, mildly tender, nondistended. MUSCULOSKELETAL: No cyanosis, or edema. BACK: Nontender without obvious deformity. No CVA tenderness. A/P Assessment and Plan 57-year-old female with 1. Diverticulitis, failed outpatient treatment CT of the abdomen/pelvis shows a 6 cm area of mural thickening in the distal left colon associated with numerous diverticula and free fluid, likely diverticulitis Cannot exclude focal colitis Status post Cipro/Flagyl 10 days Currently on IV Zosyn Status post EGD and report noted. Appreciate input from GI Start Reglan IV every 6 as needed If no improvement of symptoms, consider gastric emptying study 2. Diabetes mellitus Continue to hold metformin SSI Monitor blood glucose 3. Hypothyroidism Continue home levothyroxine Gerald Gallagher MD October 24, 2017 16:08
[2017-10-24] MEDS ORDERED: PROMETHAZINE INJ 25 MG/ML VIAL IM PRN (16:15)
[2017-10-24] MEDS: METOCLOPRAMIDE HCL 10 MG/2 ML VIAL IV PUSH PRN (17:08)
[2017-10-24 20:00] VITALS: PULSE 90
[2017-10-24 21:03] VITALS: BP 131/76; PULSE 79; RESP 16; TEMP 98.4; O2SAT 97
[2017-10-25] VITALS (8 sets, daily range): BP systolic 96–182; BP diastolic 57–88; PULSE 70–82; RESP 18–20; TEMP 97.3–98.1; O2SAT 95–99
[2017-10-25] MEDS: PIPERACIL-TAZO 3.375 GM PREMIX 50 ML IV SCH ×4 (03:00→20:36)
[2017-10-25] MEDS: SODIUM CHLOR 0.9% 1000 ML INJ 1,000 ML IV SCH ×2 (03:00→15:20)
[2017-10-25 04:51] LABS: AUTOMATED NEUTROPHIL # 2.2 TH/MM3 (1.8-7.7); BASOPHIL % 0.5 % (0.0-2.0); EOSINOPHIL # 0.1 TH/MM3 (0-0.4); EOSINOPHIL % 2.5 % (0.0-4.0); HEMATOCRIT 32.4 % (35.0-46.0); HEMOGLOBIN 10.9 GM/DL (11.6-15.3); LYMPH % 33.8 % (9.0-44.0); LYMPHOCYTE # 1.4 TH/MM3 (1.0-4.8); MEAN CORPUSCULAR HEMOGLOBIN 29.6 PG (27.0-34.0); MEAN CORPUSCULAR HGB CONC 33.6 % (32.0-36.0); MEAN PLATELET VOLUME 8.4 FL (7.0-11.0); MONO % 10.2 % (0.0-8.0); MONOCYTE # 0.4 TH/MM3 (0-0.9); PLATELET COUNT 262 TH/MM3 (150-450); RED BLOOD COUNT 3.68 MIL/MM3 (4.00-5.30); WHITE BLOOD COUNT 4.2 TH/MM3 (4.0-11.0)
[2017-10-25 05:28] LABS: BICARBONATE 29.9 MEQ/L (21.0-32.0); CALCIUM 7.9 MG/DL (8.5-10.1); CREATININE 0.63 MG/DL (0.50-1.00)
[2017-10-25] MEDS: LEVOTHYROXINE SODIUM 25 MCG TAB PO SCH (06:34)
[2017-10-25] MEDS: LEVOTHYROXINE SODIUM 112 MCG TAB PO SCH (06:34)
[2017-10-25] MEDS: INSULIN ASPART SUPPLEMENTAL SCALE SQ SCH ×5 (07:56→20:37)
[2017-10-25] MEDS: SODIUM CHLORIDE 0.9% FLUSH 10 ML FLUSH IV FLUSH SCH ×2 (08:21→20:36)
[2017-10-25] MEDS: DOCUSATE SODIUM 50 MG/SENNA 8.6 MG TAB PO SCH ×2 (08:23→20:36)
--- NOTE | 2017-10-25 12:21 | HHI.GIFU ---
Subjective Remarks Pt reports continued left sided pain Reports one episode of emesis yesterday Denies any nausea today, currently NPO Has not had a BM (Bianca Robbins) Objective Vitals I&O Vital Signs Date Time Temp Pulse Resp B/P (MAP) Pulse Ox O2 Delivery O2 Flow Rate FiO2 10/25/17 08:00 98.1 76 20 117/57 (77) 96 10/25/17 08:00 77 10/25/17 05:50 97.7 77 18 140/67 (91) 95 10/25/17 04:00 74 10/25/17 00:54 97.6 71 18 96/61 (73) 95 10/25/17 00:00 79 10/24/17 21:03 98.4 79 16 131/76 (94) 97 10/24/17 20:00 90 I/O 10/24/17 10/24/17 10/24/17 10/25/17 10/25/17 10/25/17 07:00 15:00 23:00 07:00 15:00 23:00 Intake Total 50 ml Balance 50 ml Other 50 ml Laboratory Laboratory Tests Test 10/25/17 03:57 White Blood Count 4.2 Red Blood Count 3.68 Hemoglobin 10.9 Hematocrit 32.4 Mean Corpuscular Volume 88.0 Mean Corpuscular Hemoglobin 29.6 Mean Corpuscular Hemoglobin Concent 33.6 Red Cell Distribution Width 14.0 Platelet Count 262 Mean Platelet Volume 8.4 Neutrophils (%) (Auto) 53.0 Lymphocytes (%) (Auto) 33.8 Monocytes (%) (Auto) 10.2 Eosinophils (%) (Auto) 2.5 Basophils (%) (Auto) 0.5 Neutrophils # (Auto) 2.2 Lymphocytes # (Auto) 1.4 Monocytes # (Auto) 0.4 Eosinophils # (Auto) 0.1 Basophils # (Auto) 0.0 CBC Comment DIFF FINAL Differential Comment Blood Urea Nitrogen 7 Creatinine 0.63 Random Glucose 80 Calcium Level 7.9 Sodium Level 145 Potassium Level 3.5 Chloride Level 109 Carbon Dioxide Level 29.9 Anion Gap 6 Estimat Glomerular Filtration Rate 97 Date/Time Source Procedure Growth Status 10/23/17 20:35 Blood Peripheral Aerobic Blood Culture - Preliminary NO GROWTH IN 2 DAYS Resulted 10/23/17 20:35 Blood Peripheral Anaerobic Blood Culture - Preliminary NO GROWTH IN 2 DAYS Resulted Imaging Last Impressions Chest X-Ray 10/23/171946 Signed Impressions: Service Date/Time: Monday, October 23, 2017 20:01 - CONCLUSION: No acute disease. Bar Rudolph MD Abdomen/Pelvis CT 10/23/171946 Signed Impressions: Service Date/Time: Monday, October 23, 2017 21:52 - CONCLUSION: 1. 6 cm long area of mural thickening in the distal left colon associated with numerous diverticula and a small amount of free fluid. Primary differential diagnosis is diverticulitis. Focal colitis could have a similar appearance. Bar Rudolph MD Physical Exam HEENT: Normocephalic; atraumatic CHEST: Even/unlabored CARDIAC: RRR ABDOMEN: Soft, nondistended, left sided abdominal tenderness, bowel sounds acitve SKIN: Normal; no rash; no jaundice. 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 (Bianca Robbins [facility]) Assessment and Plan Plan Assessment - Epigastric pain, nausea, vomiting S/P EGD yesterday --> Significant gastritis could be related to the retching and vomiting Normal EGD otherwise. Possible gastropathy or gastroparesis. Pt is known diabetic on Metformin, possible cause of gastroparesis Reports last episode of emesis yesterday, denies nausea today. Reglan added, pt reports improvement. Currently on clear liquids, tolerating diet. - LLQ abdominal pain CT abdomen and pelvis W IV contrast --> 6 cm long area of mural thickening in the distal left colon associated with numerous diverticula and a small amount of free fluid. Primary differential diagnosis is diverticulitis. Focal colitis could have a similar appearance. Currently on Zosyn. No leukocytosis, afebrile. (10/25) Pt denies any emesis today, relief in nausea with Reglan. States she is NPO, however the chart has clear liquids ordered and I do not see any orders that would cause patient to be NPO. Will advance to full liquid and see how she tolerates it. Continued left sided abdominal pain. Remains on Zosyn. No leukocytosis, afebrile. PLAN Advance to full liquid diet Continue Reglan GES if continued epigastric pain or vomiting- likely will be positive to some degree secondary to DM Continue Zosyn EGD biopsy pending Supportive care Further recommendations based on clinical course Pt has been seen and examined by myself and Dr. Bravo and this note is written on his behalf (Bianca Robbins) Plan Patient was seen and examined, agree with above note we will do gastric emptying study tomorrow, this nausea vomiting could be related to diverticulitis or medication (Adrian Bravo MD) Bianca Robbins October 25, 2017 12:21 Adrian Bravo MD October 25, 2017 20:27
[2017-10-25] MEDS ORDERED: ACETAMINOPHEN 325 MG TAB PO PRN (12:30)
[2017-10-25] MEDS: ONDANSETRON HCL 4 MG/2 ML VIAL IVP PRN (12:46)
--- NOTE | 2017-10-25 13:38 | HHI.PR ---
Subjective Remarks Chief complaint of abdominal pain along with the transverse colon and descending colon, 5 out of 10, positive nausea, she vomited yesterday, no gas passing over the last 24 hours normal bowel movements Objective Vitals Vital Signs Date Time Temp Pulse Resp B/P (MAP) Pulse Ox O2 Delivery O2 Flow Rate FiO2 10/25/17 12:00 98.1 77 20 182/88 (119) 99 10/25/17 08:00 98.1 76 20 117/57 (77) 96 10/25/17 08:00 77 10/25/17 05:50 97.7 77 18 140/67 (91) 95 10/25/17 04:00 74 10/25/17 00:54 97.6 71 18 96/61 (73) 95 10/25/17 00:00 79 10/24/17 21:03 98.4 79 16 131/76 (94) 97 10/24/17 20:00 90 I/O 10/24/17 10/24/17 10/24/17 10/25/17 10/25/17 10/25/17 06:59 14:59 22:59 06:59 14:59 22:59 Intake Total 50 ml Balance 50 ml Other 50 ml Result Diagram: 10/25/17 0357 10/25/17 0357 Objective Remarks GENERAL: This is a well-nourished, well-developed patient, in no apparent distress. SKIN: No rashes, warm and dry HEAD: Atraumatic. Normocephalic. EYES: Pupils equal round and reactive. Extraocular motions intact. No scleral icterus. ENT: Nose without bleeding, or drainage, Airway patent. NECK: Trachea midline. Supple CARDIOVASCULAR: Regular rate and rhythm without murmurs, gallops, or rubs. RESPIRATORY: Fair air entry bilaterally. No wheezes, rales, or rhonchi. GASTROINTESTINAL: Abdomen soft, mild tenderness over the transverse and descending colon, nondistended. Positive bowel sounds MUSCULOSKELETAL: Extremities without clubbing, cyanosis, or edema. Pedal pulses appreciated NEUROLOGICAL: Awake and alert. Moves all extremity. Normal speech.no focal neurological deficit A/P Assessment and Plan 57-year-old female with 5/3: Having abdominal pain 5 out of 10, and poor emptying study tomorrow, GI following 1. Diverticulitis, failed outpatient treatment CT of the abdomen/pelvis shows a 6 cm area of mural thickening in the distal left colon associated with numerous diverticula and free fluid, likely diverticulitis Cannot exclude focal colitis Status post Cipro/Flagyl 10 days Currently on IV Zosyn Status post EGD and report noted. Appreciate input from GI, Start Reglan IV every 6 as needed 2. Diabetes mellitus Continue to hold metformin SSI Monitor blood glucose 3. Hypothyroidism Continue home levothyroxine Uche Marshall MD October 25, 2017 13:37
[2017-10-25] MEDS: METOCLOPRAMIDE HCL 10 MG/2 ML VIAL IV PUSH PRN ×2 (13:39→21:45)
[2017-10-26] VITALS (8 sets, daily range): BP systolic 117–143; BP diastolic 66–86; PULSE 63–77; RESP 17–20; TEMP 97.8–98.2; O2SAT 95–97
[2017-10-26] MEDS: SODIUM CHLOR 0.9% 1000 ML INJ 1,000 ML IV SCH ×2 (02:16→12:39)
[2017-10-26] MEDS: PIPERACIL-TAZO 3.375 GM PREMIX 50 ML IV SCH ×4 (02:17→22:53)
[2017-10-26] MEDS: LEVOTHYROXINE SODIUM 25 MCG TAB PO SCH (05:32)
[2017-10-26] MEDS: LEVOTHYROXINE SODIUM 112 MCG TAB PO SCH (05:32)
[2017-10-26] MEDS: INSULIN ASPART SUPPLEMENTAL SCALE SQ SCH ×4 (07:54→21:00)
[2017-10-26 08:00] LABS: HEMATOCRIT 34.4 % (35.0-46.0); HEMOGLOBIN 11.6 GM/DL (11.6-15.3)
[2017-10-26] MEDS: SODIUM CHLORIDE 0.9% FLUSH 10 ML FLUSH IV FLUSH SCH ×2 (08:55→22:52)
[2017-10-26] MEDS: DOCUSATE SODIUM 50 MG/SENNA 8.6 MG TAB PO SCH ×2 (08:55→21:00)
--- NOTE | 2017-10-26 12:17 | HHI.GIFU ---
Subjective Remarks Obese female resting in the bed , back from testing Mild left lower quadrant pain worsening with some light palpation Diarrhea but also states that she was taken some stool softeners No nausea no vomiting Afebrile (Sara Pagan) Objective Vitals I&O Vital Signs Date Time Temp Pulse Resp B/P (MAP) Pulse Ox O2 Delivery O2 Flow Rate FiO2 10/26/17 08:00 98.2 63 20 141/66 (91) 97 10/26/17 08:00 Room Air 10/26/17 07:00 65 10/26/17 04:27 97.8 69 17 117/66 (83) 96 10/26/17 04:00 Room Air 10/26/17 04:00 77 10/26/17 00:11 97.8 67 18 143/86 (105) 95 10/26/17 00:00 68 10/26/17 00:00 Room Air 10/25/17 20:00 Room Air 10/25/17 20:00 97.8 82 20 157/78 (104) 98 10/25/17 20:00 77 10/25/17 16:00 97.3 70 20 157/76 (103) 95 10/25/17 16:00 74 I/O 10/25/17 10/25/17 10/25/17 10/26/17 10/26/17 10/26/17 07:00 15:00 23:00 07:00 15:00 23:00 Intake Total 50 ml 1050 ml Balance 50 ml 1050 ml Intake IV Total 50 ml 1050 ml # Voids 4 3 Laboratory Laboratory Tests Test 10/26/17 07:10 Hemoglobin 11.6 Hematocrit 34.4 Date/Time Source Procedure Growth Status 10/23/17 20:35 Blood Peripheral Aerobic Blood Culture - Preliminary NO GROWTH IN 3 DAYS Resulted 10/23/17 20:35 Blood Peripheral Anaerobic Blood Culture - Preliminary NO GROWTH IN 3 DAYS Resulted Imaging Last Impressions Chest X-Ray 10/23/171946 Signed Impressions: Service Date/Time: Monday, October 23, 2017 20:01 - CONCLUSION: No acute disease. Bar Rudolph MD Abdomen/Pelvis CT 10/23/171946 Signed Impressions: Service Date/Time: Monday, October 23, 2017 21:52 - CONCLUSION: 1. 6 cm long area of mural thickening in the distal left colon associated with numerous diverticula and a small amount of free fluid. Primary differential diagnosis is diverticulitis. Focal colitis could have a similar appearance. Bar Rudolph MD Physical Exam HEENT: Normocephalic; atraumatic, obese CHEST: Even/unlabored, lungs are essentially clear no obvious rhonchi or wheezing CARDIAC: RRR ABDOMEN: Obese, round, soft, nondistended, left lower quadrant abdominal tenderness with light palpation, bowel sounds acitve SKIN: Normal; no rash; no jaundice. 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 (Sara Pagan) Assessment and Plan Plan ASSESSMENT - epigastric pain, n/v, dyspepsia - last EGD 02/2017 with finding esohpagitis. could be gastritis vs esophagitis vs donovan vs hpylori. - lower abd pain, change in bowel habits - for last month, failed outpt tx with cipro flagyl. suspect diverticulitis given pts history pt now on IV zosyn. last colonoscopy 02/[address] suggestive diverticulitis vs colitis labs unremarkable 10/24/2017, EGD done, Findings, gastritis, otherwise normal. Could be gastroparesis or gastropathy. 10/26/17, no current nausea or vomiting, does note some mild bloating as well as her left lower quadrant pain at times, but is showing some gradual improvement. Discussed with patient, trial of smaller meals 4-6 times a day instead of large meals. Keep a diary for any foods that cause increased bloating or nausea , and abstain. No eating late at night, no fast food and trial more of a heart healthy diet. Chew food well and hydrate. Continue her anti-reflux program. After eating attempt to ambulate at least 30 minutes after her meal to assist with digestion. Awaiting gastric emptying study done today. PLAN Diet full liquids, if tolerates will increase to heart healthy ADA this p.m. Pending gastric emptying study results, further recommendations to follow PPI, IV Reglan as needed Continue current treatment plan for diverticulitis, Zosyn colonoscopy 6-8 weeks, and can follow-up in the GI office after her discharge monitor labs Supportive care pt seen by myself and Dr Bravo and this note is on his behalf (Sara Pagan) Plan Patient had gastric emptying study today, we will follow-up on the results, continue antibiotics, further plan depends on how she is doing and the result of the gastric emptying study (Adrian Bravo MD) Sara Pagan October 26, 2017 12:17 Adrian Bravo MD October 26, 2017 23:08
[2017-10-26] MEDS ORDERED: METOCLOPRAMIDE HCL 10 MG/2 ML VIAL IV ONE (12:49)
[2017-10-26] MEDS: ONDANSETRON HCL 4 MG/2 ML VIAL IVP PRN (14:31)
--- NOTE | 2017-10-26 15:28 | RADRPT ---
EXAM DATE/TIME: 10/26/2017 10:59 [place] COMPARISON: No previous studies available for comparison. INDICATIONS : Abdominal pain with nausea and vomiting. DOSE: 1.0 mCi Tc99m Sulfur Colloid Labeled Whole egg PO MEDICATONS: 1.) 5 mg Reglan IV at 94 minutes IMAGIN hrs MEDICAL HISTORY : Carcinoma, thyroid. Gastroesophageal reflux disease. Myocardial infarction. Diabetes and hypertension . SURGICAL HISTORY : Appendectomy. Cholecystectomy. Hysterectomy. Hernia repair. ENCOUNTER: Initial ACUITY: 1 day PAIN SCALE: 3/10 LOCATION: Abdomen. TECHNIQUE: Following the oral ingestion of radiotracer-labeled meal, dynamic sequential images in the ANI projec tion were acquired with simultaneous computer acquisition. The data set was decay-corrected. FINDINGS: There is aligned time of 60 minutes. Once emptying starts there is normal 1-1 slope of emptying kine tics with the half-life of approximately 100 minutes. There is no response to Reglan. CONCLUSION: Delayed onset of emptying with normal kinetics once emptying starts. Andrea Rosales MD FACR on October 26, 2017 at 15:25 Board Certified Radiologist. This report was verified electronically.
--- NOTE | 2017-10-26 20:16 | HHI.PR ---
Subjective Remarks Abdominal pain is less than 3 out of 10 better than before No nausea vomiting, plan for GES today Objective Vitals Vital Signs Date Time Temp Pulse Resp B/P (MAP) Pulse Ox O2 Delivery O2 Flow Rate FiO2 10/26/17 16:00 68 10/26/17 16:00 98.1 71 20 122/70 (87) 95 10/26/17 08:00 98.2 63 20 141/66 (91) 97 10/26/17 08:00 Room Air 10/26/17 07:00 65 10/26/17 04:27 97.8 69 17 117/66 (83) 96 10/26/17 04:00 Room Air 10/26/17 04:00 77 10/26/17 00:11 97.8 67 18 143/86 (105) 95 10/26/17 00:00 68 10/26/17 00:00 Room Air I/O 10/25/17 10/25/17 10/25/17 10/26/17 10/26/17 10/26/17 07:00 15:00 23:00 07:00 15:00 23:00 Intake Total 50 ml 1050 ml 50 ml 290 ml Balance 50 ml 1050 ml 50 ml 290 ml Intake Oral 240 ml IV Total 50 ml 1050 ml 50 ml 50 ml # Voids 4 3 8 # Bowel Movements 3 Result Diagram: 10/26/17 0710 10/25/17 0357 Objective Remarks GENERAL: This is a well-nourished, well-developed patient, in no apparent distress. SKIN: No rashes, warm and dry HEAD: Atraumatic. Normocephalic. EYES: Pupils equal round and reactive. Extraocular motions intact. No scleral icterus. ENT: Nose without bleeding, or drainage, Airway patent. NECK: Trachea midline. Supple CARDIOVASCULAR: Regular rate and rhythm without murmurs, gallops, or rubs. RESPIRATORY: Fair air entry bilaterally. No wheezes, rales, or rhonchi. GASTROINTESTINAL: Abdomen soft, mild tenderness over the transverse and descending colon, nondistended. Positive bowel sounds MUSCULOSKELETAL: Extremities without clubbing, cyanosis, or edema. Pedal pulses appreciated NEUROLOGICAL: Awake and alert. Moves all extremity. Normal speech.no focal neurological deficit A/P Assessment and Plan 57-year-old female with 5/3: Having abdominal pain 5 out of 10, and poor emptying study tomorrow, GI following 09/26: Less abdominal pain today 2-3 out of 10, no nausea or vomiting, plan for GBS today, continue monitor clinically 1. Diverticulitis, failed outpatient treatment CT of the abdomen/pelvis shows a 6 cm area of mural thickening in the distal left colon associated with numerous diverticula and free fluid, likely diverticulitis Cannot exclude focal colitis Status post Cipro/Flagyl 10 days Currently on IV Zosyn Status post EGD and report noted. Appreciate input from GI, Start Reglan IV every 6 as needed 2. Diabetes mellitus Continue to hold metformin SSI Monitor blood glucose 3. Hypothyroidism Continue home levothyroxine Uche Marshall MD October 26, 2017 20:16
[2017-10-26] MEDS ORDERED: clonazePAM 1 MG TAB PO SCH (21:00)
[2017-10-26] MEDS: PANTOPRAZOLE SOD 40 MG DELAYED RELEASE TAB PO SCH (22:52)
[2017-10-27 00:01] VITALS: BP 138/72; PULSE 70; RESP 20; TEMP 97; O2SAT 97
[2017-10-27 04:01] VITALS: BP 133/67; PULSE 72; RESP 20; TEMP 98.4; O2SAT 95
[2017-10-27] MEDS: PIPERACIL-TAZO 3.375 GM PREMIX 50 ML IV SCH ×2 (04:05→09:12)
[2017-10-27] MEDS: LEVOTHYROXINE SODIUM 25 MCG TAB PO SCH (06:28)
[2017-10-27] MEDS: LEVOTHYROXINE SODIUM 112 MCG TAB PO SCH (06:28)
[2017-10-27] MEDS: SODIUM CHLORIDE 0.9% FLUSH 10 ML FLUSH IV FLUSH SCH (07:54)
[2017-10-27 08:00] VITALS: BP 147/80; PULSE 62; RESP 18; TEMP 98; O2SAT 96
[2017-10-27] MEDS: INSULIN ASPART SUPPLEMENTAL SCALE SQ SCH ×2 (08:00→12:00)
[2017-10-27] MEDS: SODIUM CHLOR 0.9% 1000 ML INJ 1,000 ML IV SCH (08:39)
[2017-10-27 08:50] VITALS: PULSE 61
[2017-10-27] MEDS ORDERED: CITALOPRAM HYDROBROMIDE 40 MG TAB PO SCH (09:00)
[2017-10-27] MEDS: DOCUSATE SODIUM 50 MG/SENNA 8.6 MG TAB PO SCH (09:16)
[2017-10-27] MEDS: PANTOPRAZOLE SOD 40 MG DELAYED RELEASE TAB PO SCH (09:16)
[2017-10-27 12:00] VITALS: BP 143/76; PULSE 65; RESP 18; TEMP 98.2; O2SAT 98
--- NOTE | 2017-10-27 13:37 | HHI.GIFU ---
Subjective Remarks Pt resting in bed Now on heart healthy diet, states tolerating well Having multiple BMs Denies nausea, vomiting, abdominal pain (Bianca Robbins) Objective Vitals I&O Vital Signs Date Time Temp Pulse Resp B/P (MAP) Pulse Ox O2 Delivery O2 Flow Rate FiO2 10/27/17 08:50 61 10/27/17 08:00 98.0 62 18 147/80 (102) 96 10/27/17 04:01 98.4 72 20 133/67 (89) 95 10/27/17 00:01 97.0 70 20 138/72 (94) 97 10/26/17 20:05 98.1 67 20 140/83 (102) 97 10/26/17 16:00 68 10/26/17 16:00 98.1 71 20 122/70 (87) 95 I/O 10/26/17 10/26/17 10/26/17 10/27/17 10/27/17 10/27/17 07:00 15:00 23:00 07:00 15:00 23:00 Intake Total 1050 ml 50 ml 290 ml Balance 1050 ml 50 ml 290 ml Intake Oral 240 ml IV Total 1050 ml 50 ml 50 ml # Voids 3 8 3 # Bowel Movements 3 1 Laboratory Date/Time Source Procedure Growth Status 10/23/17 20:35 Blood Peripheral Aerobic Blood Culture - Preliminary NO GROWTH IN 4 DAYS Resulted 10/23/17 20:35 Blood Peripheral Anaerobic Blood Culture - Preliminary NO GROWTH IN 4 DAYS Resulted Imaging Last Impressions Gastric Emptying Nuclear Medicine 10/26/17 0000 Signed Impressions: Service Date/Time: Thursday, October 26, 2017 10:59 - CONCLUSION: Delayed onset of emptying with normal kinetics once emptying starts. Andrea Rosales MD FACR Chest X-Ray 10/23/171946 Signed Impressions: Service Date/Time: Monday, October 23, 2017 20:01 - CONCLUSION: No acute disease. Bar Rudolph MD Abdomen/Pelvis CT 10/23/171946 Signed Impressions: Service Date/Time: Monday, October 23, 2017 21:52 - CONCLUSION: 1. 6 cm long area of mural thickening in the distal left colon associated with numerous diverticula and a small amount of free fluid. Primary differential diagnosis is diverticulitis. Focal colitis could have a similar appearance. Bar Rudolph MD Physical Exam HEENT: Normocephalic; atraumatic CHEST: Even/unlabored CARDIAC: RRR ABDOMEN: Obese, soft, nontender, bowel sounds active SKIN: Normal; no rash; no jaundice. [employer]: No focal deficits; alert and oriented times three. (Bianca Robbins) Assessment and Plan Plan Assessment - Epigastric pain, nausea, vomiting S/P EGD yesterday --> Significant gastritis could be related to the retching and vomiting Normal EGD otherwise. Possible gastropathy or gastroparesis. Pathology ( gastric antrum) Moderate chronic active gastritis, negative for H. Pylori. Pt is known diabetic on Metformin, possible cause of gastroparesis Reports last episode of emesis yesterday, denies nausea today. Reglan added, pt reports improvement. Currently on clear liquids, tolerating diet. - LLQ abdominal pain CT abdomen and pelvis W IV contrast --> 6 cm long area of mural thickening in the distal left colon associated with numerous diverticula and a small amount of free fluid. Primary differential diagnosis is diverticulitis. Focal colitis could have a similar appearance. Currently on Zosyn. No leukocytosis, afebrile. (10/25) Pt denies any emesis today, relief in nausea with Reglan. States she is NPO, however the chart has clear liquids ordered and I do not see any orders that would cause patient to be NPO. Will advance to full liquid and see how she tolerates it. Continued left sided abdominal pain. Remains on Zosyn. No leukocytosis, afebrile. (10/27) Pt now on heart healthy diet, states she is tolerating it well. Denies nausea, vomiting, and abdominal pain. Has had multiple BMs. Would like to go home today. GES (10/26) --> There is aligned time of 60 minutes. Once emptying starts there is normal 1-1 slope of emptying kinetics with the half-life of approximately 100 minutes. There is no response to Reglan. Delayed onset of emptying with normal kinetics once emptying starts. PLAN Can go home on PO Reglan Protonix DC home on oral abx OK to DC from a GI standpoint, have pt FU in office Colonoscopy outpatient in 6-8 weeks Pt has been seen and examined by myself and Dr. Gavin and this note is written on her behalf Further recommendations based on clinical course (Bianca Robbins) Bianca Robbins October 27, 2017 13:37 Lucita Gavin MD October 27, 2017 17:30
[2017-10-27] MEDS ORDERED: METR-1 PO (13:42)
== END 2017-10-27 15:15 | disposition home or self-care (01) | DRG 392 ==
LOC: NEPE 18:57 → NEDA 22:51 → NEPHCDU 10-24 00:19 → N04A 10-24 14:39
PROVIDERS: ADMIT Hospitalist; ATTEND Hospitalist
PROC: 0DB78ZX Excision of Stomach, Pylorus, Via Natural or Artificial Opening Endoscopic, Diagnostic (ICD-10-PCS; principal; 2017-10-24 13:55)
DX: K57.32 Diverticulitis of large intestine without perforation or abscess without bleeding (principal); E03.9 Hypothyroidism, unspecified; E11.9 Type 2 diabetes mellitus without complications; K29.00 Acute gastritis without bleeding; Z88.5 Allergy status to narcotic agent; Z88.7 Allergy status to serum and vaccine
CPT/HCPCS: 71045; 74177; 78264; 80048; 80053; 81001; 82550; 82552; 82948; 83605; 83690; 83735; 83880; 84484; 85014; 85018; 85025; 85610; 85730; 86140; 87040; 88305; 88312; 90732; 93005; 96361; 96365; 96375; A9541; J1815; J2270; J2405; J2543; J2550; J2765; J7030; J7040; Q9967